=== PATIENT | female | born 1960 | race Caucasian/White ===

== ENCOUNTER 2018-06-23 07:42 | Emergency (ER) | payer OTHER ==
[2018-06-23 08:25] VITALS: BP 130/69
--- NOTE | 2018-06-23 08:40 | UC ---
Abdominal Pain Female HPI - HPI Summary HPI Summary: 58 yo female with n/v/d x 4-5 days no vomiting x 2 days no f/c has lost about 5 pounds 12-20 episodes of diarrhea/day tolerating po well despite nausea no travel no recent abx with similar symptoms which are resolving no URI symptoms - History of Current Complaint Chief Complaint: UCGI Stated Complaint: DIARRHEA,VOMITING Time Seen by Provider: 06/23/18 08:30 Hx Obtained From: Patient Onset/Duration: Sudden Onset, Lasting Days Timing: Constant Severity Initially: Mild Severity Currently: Moderate Pain Intensity: 0 Pain Scale Used: 0-10 Numeric Location: Diffuse - intermittent diffuse (but mostly lower) crampy abd pain Radiates: No Character: Cramping Aggravating Factor(s): Nothing Alleviating Factor(s): Nothing Associated Signs and Symptoms: Positive: Decreased Appetite, Nausea, Vomiting, Diarrhea. Negative: Diaphoresis, Fever, Cough, Chest Pain, Dizzy, Back Pain, Constipation, Blood in Stool, Urinary Symptoms, Vaginal Bleeding, Vaginal Discharge Allergies/Adverse Reactions: Allergies Allergy/AdvReac Type Severity Reaction Status Date / Time No Known Allergies Allergy Verified 06/23/18 08:11 Home Medications: Home Medications Losartan/Hydrochlorothiazide [Losartan Potassium/Hydroc 100-25 mg] 1 tab PO DAILY 06/23/18 [History Confirmed 06/23/18] Omeprazole 40 mg PO DAILY 06/23/18 [History Confirmed 06/23/18] PMH/Surg Hx/FS Hx/Imm Hx Previously Healthy: Yes Cardiovascular History: Hypertension GI/ History: Gastroesophageal Reflux - Surgical History Surgical History: Yes Surgery Procedure, Year, and Place: TUBAL LIGATION, LEFT SHOULDER SURGERY, LUMBAR DISCETOMY, CHOLYCYSTECTOMY. - Social History Alcohol Use: Rare Substance Use Type: None Smoking Status (MU): Former Smoker When Did the Patient Quit Smoking/Using Tobacco: 2013 Review of Systems All Other Systems Reviewed And Are Negative: Yes Constitutional: Positive: Fatigue Skin: Positive: Negative Eyes: Positive: Negative ENT: Positive: Negative Respiratory: Positive: Negative Gastrointestinal: Positive: Abdominal Pain, Vomiting, Diarrhea, Nausea Motor: Positive: Negative Neurovascular: Positive: Negative Musculoskeletal: Positive: Negative Neurological: Positive: Negative Psychological: Positive: Negative Physical Exam Triage Information Reviewed: Yes Appearance: Well-Appearing, No Pain Distress, Well-Nourished Vital Signs: Initial Vital Signs Temp 97.7 F 06/23/18 08:14 Pulse 102 06/23/18 08:14 Resp 18 06/23/18 08:14 BP 130/69 06/23/18 08:14 Pulse Ox 98 06/23/18 08:14 Vital Signs Reviewed: Yes Eyes: Positive: Conjunctiva Clear ENT: Positive: Hearing grossly normal, Uvula midline, Other - moist mm. Negative: Nasal congestion, Nasal drainage, Tonsillar swelling, Tonsillar exudate, Hoarse voice Dental Exam: Normal Neck: Positive: Supple, Nontender, No Lymphadenopathy Respiratory: Positive: Lungs clear, Normal breath sounds, No respiratory distress Cardiovascular: Positive: RRR, No Murmur, Tachycardia Abdomen Description: Positive: Nontender, No Organomegaly, Soft. Negative: Bruit, CVA Tenderness (R), CVA Tenderness (L), Distended, Guarding Bowel Sounds: Positive: Present, Hyperactive Musculoskeletal: Positive: ROM Intact, No Edema Neurological: Positive: Alert Psychological Exam: Normal Skin Exam: Normal Abd Pain Female Course/Dx - Differential Dx/Diagnosis Provider Diagnosis: Acute gastroenteritis Discharge - Sign-Out/Discharge Documenting (check all that apply): Patient Departure All imaging exams completed and their final reports reviewed: No Studies - Discharge Plan Condition: Stable Disposition: HOME Prescriptions: Ondansetron TAB* [Zofran Tab*] 4 mg PO Q6H PRN #10 tab PRN Reason: Nausea Patient Education Materials: Gastroenteritis (ED), Nutrition Tips for Relief of Diarrhea (ED) Referrals: Monse Ahumada [Primary Care Provider] - 3 Days (if not better) Additional Instructions: may try IMODIUM-AD to ER for new or worsening symptoms bring in stool for studies - Billing Disposition and Condition Condition: STABLE Disposition: Home
--- NOTE | 2018-06-27 07:00 | UC ---
- Progress Note Progress Note: neg Shiga neg rotavirus no change [facility] 06/27/18 Course/Dx - Diagnoses Provider Diagnoses: Acute gastroenteritis Discharge - Sign-Out/Discharge Documenting (check all that apply): Post-Discharge Follow Up All imaging exams completed and their final reports reviewed: No Studies - Discharge Plan Condition: Stable Disposition: HOME Prescriptions: Ondansetron TAB* [Zofran Tab*] 4 mg PO Q6H PRN #10 tab PRN Reason: Nausea Patient Education Materials: Gastroenteritis (ED), Nutrition Tips for Relief of Diarrhea (ED) Referrals: Monse Ahumada [Primary Care Provider] - 3 Days (if not better) Additional Instructions: may try IMODIUM-AD to ER for new or worsening symptoms bring in stool for studies - Billing Disposition and Condition Condition: STABLE Disposition: Home
== END 2018-06-23 09:00 | disposition home or self-care (01) ==
LOC: UCCORT 07:42 → MERGE 07:42 → UCCORT 09:00
DX: K52.9 Noninfective gastroenteritis and colitis, unspecified (principal); R53.83 Other fatigue; I10 Essential (primary) hypertension; K21.9 Gastro-esophageal reflux disease without esophagitis; Z87.891 Personal history of nicotine dependence
CPT/HCPCS: 87045; 87046; 87425; 87899; 99212; G0463